=== PATIENT | male | born 1990 | race Caucasian/White ===

== ENCOUNTER 2016-04-05 21:41 | Emergency (ER) | payer OTHER ==
[~2016-04-05] VITALS: Ht 177.8 cm; Wt 90.7 kg
[2016-04-05 21:53] VITALS: BP 145/89
[2016-04-05] MEDS ORDERED: TETANUS-DIPTH-ACEL PERTUSSIS 0.5ML SYRG IM ONE (22:15)
== END 2016-04-05 22:58 | disposition home or self-care (01) ==
LOC: ER 21:44
DX: S69.82XA Other specified injuries of left wrist, hand and finger(s), initial encounter (principal); M79.642 Pain in left hand; Z23 Encounter for immunization; X83.8XXA Intentional self-harm by other specified means, initial encounter; Y93.89 Activity, other specified; Y99.8 Other external cause status; Y92.89 Other specified places as the place of occurrence of the external cause
CPT/HCPCS: 73090; 73130; 90471; 90715

== ENCOUNTER 2016-05-11 10:15 | Emergency (ER) | payer OTHER ==
[~2016-05-11] VITALS: Ht 177.8 cm; Wt 4.5 kg
[2016-05-11] MEDS ORDERED: SODIUM CHLORIDE 0.9% 500 ML IV ONE (10:24)
[2016-05-11] MEDS ORDERED: ETOMIDATE (2MG/ML) 20ML VIAL IV ONE ×3 (10:45→11:11)
[2016-05-11] MEDS ORDERED: MORPHINE SULFATE 4 MG/ML SYRG IV ONE (11:30)
[2016-05-11] MEDS ORDERED: ONDANSETRON HCL 4 MG/2 ML VIAL IV ONE ×2 (11:30→11:45)
[2016-05-11] MEDS ORDERED: HYDROmorphone HCL 2 MG/ML VL IV ONE (11:45)
[2016-05-11] MEDS ORDERED: PROPOFOL 10 MG/ML 20 ML IV ONE (12:05)
[2016-05-11] MEDS ORDERED: METOCLOPRAMIDE HCL 5MG/ml INJ 2ml VIAL ONE (12:05)
[2016-05-11] MEDS ORDERED: DEXAMETHASONE SOD PHOS 10MG/1ML VIAL INJ ONE (12:05)
[2016-05-11] MEDS ORDERED: ROCURONIUM 10MG/ML 10ML VIAL IV ONE (12:05)
[2016-05-11] MEDS ORDERED: MIDAZOLAM HCL 1MG/1ML-2 ML VIAL ONE (12:05)
[2016-05-11] MEDS ORDERED: fentaNYL CITRATE 100 MCG/2 ML VL ONE (12:05)
[2016-05-11 12:30] LABS: BUN/Creatinine Ratio 8.2; Calcium 8.2 mg/dL (8.5-10.1); Potassium 3.8 mmol/L (3.5-5.1)
[2016-05-11] MEDS ORDERED: DOXAPRAM HCL 20 MG/ML 20ML VIAL INJ IV ONE (12:59)
[2016-05-11 13:02] LABS: Basophils # (auto) 0 uL; Basophils % (auto) 0.2 % (0.0-2.0); Eosinophils # (auto) 0 uL; Eosinophils % (auto) 0.2 % (0.0-7.0); Hematocrit 43.9 % (41.0-53.0); Hemoglobin 14.6 g/dL (13.5-17.5); Lymphocytes # (auto) 1.1 uL; Lymphocytes % (auto) 11.5 % (10.0-50.0); Mean Corpuscular Hemoglobin 30.4 pg (28.0-32.0); Mean Corpuscular Hgb Conc. 33.3 g/dL (32.0-36.0); Mean Corpuscular Volume 91.2 fL (80.0-100.0); Mean Platelet Volume 9.9 fL (7.4-10.4); Monocytes # (auto) 0.6 uL; Monocytes % (auto) 5.7 % (0.0-12.0); Neutrophils # (auto) 8.1 uL; Neutrophils % (auto) 82.4 % (37.0-80.0); Platelet Count (auto) 181 10^3/uL (140-450); Red Cell Distribution Width 13.1 % (11.6-16.0); White Blood Cell 9.8 10^3/uL (4.4-10.8)
[2016-05-11] MEDS ORDERED: HYDROmorphone HCL 2 MG/ML VL IV PRN (13:15)
[2016-05-11] MEDS ORDERED: KETOROLAC TROMETH 30 MG/ML 1ML VIAL IV ONE (13:15)
[2016-05-11] MEDS ORDERED: PROMETHAZINE HCL 25 MG/ML 1ML IM ONE (13:15)
[2016-05-11 13:27] LABS: INR 1.08 (0.9-1.15); Partial Thromboplastin Time 24.4 sec (22.64-33.71); Prothrombin Time 11.1 sec (9.37-12.3)
[2016-05-11 15:07] VITALS: BP 139/72
== END 2016-05-11 14:31 | disposition home or self-care (01) ==
LOC: ER 10:15 → EDUNIT# 10:15 → ER 14:31
DX: S43.004A Unspecified dislocation of right shoulder joint, initial encounter (principal); W19.XXXA Unspecified fall, initial encounter; Y93.89 Activity, other specified; Y99.8 Other external cause status; Y92.89 Other specified places as the place of occurrence of the external cause
CPT/HCPCS: 23650; 36415; 73020; 76000; 80048; 85025; 85610; 85730; 94761; 96361; 96374; 96375; 99152; 99285; J1100; J1170; J2250; J2270; J2405; J2704; J2765; J3010